=== PATIENT | female | born 1970 | race Caucasian/White ===

== ENCOUNTER → 2020-09-12 | Outpatient (CLI) | LOC: EDSEX → M LABSMTC 08:51 | PROVIDERS: ATTEND Anesthesiology | DX: Z01.812 Encounter for preprocedural laboratory examination (principal); Z20.822 Contact with and (suspected) exposure to COVID-19 ==

== ENCOUNTER 2020-09-17 07:21 | Day surgery (SDC) | payer BC ==
[~2020-09-17] VITALS: Ht 160 cm; Wt 65.8 kg
[~2020-09-17 07:21] MED LIST: LIDOCAINE 2% 100MG/5ML SDV (FOR ANES.) As Ordered ONE; MIDAZOLAM INJ 2MG/2ML VIAL (J2250 PER 1MG) As Ordered ONE; ceFAZolin SOD 2 GM in IV 1 EA IV ONE; fentaNYL 100 MCG/2 ML INJECTION (J3010) As Ordered ONE; propofoL 200 MG/20 ML VIAL As Ordered ONE
--- OUTSIDE RECORDS SUMMARY | 2020-09-17 07:28 | CCD ---
Author Author [facility] [employer] Organization [facility] [employer] Address Unknown Phone Unavailable Care Team Providers Care Equipment Scheduler Name Role Phone Sharath Stein Unavailable PROBLEMS Type Condition ICD9-CM Code VDD76-CC Code Onset Dates Condition S tatus SNOMED Code Notes Problem Renal calculus N20.0 Active 09487984 ALLERGIES Allergen (clinical drug ingredient) Drug/Non Drug Allergy do cumented on EMR Reaction Allergy Type Onset Date Status Sulfa (for allergy use only) Unknown Drug Allergy Active ENCOUNTERS from 1970 to 2020-08-16 Encounter Location Date Provider Diagnosis [facility] Urology [address] [place] [address] Jul Sharath Stein Renal calculus N20.0 IMMUNIZATIONS No Information SOCIAL HISTORY Tobacco Use: Social History Observation Description Date Details (start date - stop date) Former Smoker Sex Assigned At : Social History Observation Description Sex Assigned At Unknown Language: Question Answer Notes Languages spoken: Malay Druze: Question Answer Notes Druze No shinto beliefs that would impact health care. Alcohol Screening: Question Answer Notes Did you have a drink containing alcohol in the past year? Ye s Points 1 Interpretation Negative How many drinks did you have on a typica l day when you were drinking in the past year? 1 or 2 (0 points) How often did you have a drink containing alcohol in t he past year? Monthly or less (1 point) Tobacco Use: Question Answer Notes Are you a: former smoker REASON FOR REFERRAL No Information VITAL SIGNS No information MEDICATIONS Medication SIG (Take, Route, Frequency, Duration) Notes Start Da te End Date Status Acetaminophen-Codeine #3 300-30 MG 1 tablet as needed Orally every 6 hrs Not-Taking Multivitamin - 1 tablet Orally Once a day for 30 day(s) Not-Taking PROCEDURES No Information RESULTS No Results REASON FOR VISIT POST OP KUB MEDICAL (GENERAL) HISTORY Type Description Date Medical History kidney stones Surgical History laparoscopy, appendectomy Surgical History litho x 2 Surgical History c sections x 3 Surgical History hysterectomy Surgical History ganglion cysts removed x 2 Surgical History stent placement Goals Section No Information Health Concerns No Information MEDICAL EQUIPMENT No Information MENTAL STATUS No Information FUNCTIONAL STATUS No Information ASSESSMENTS Encounter Date Diagnosis Assessment Notes Treatment Notes Treatm ent Clinical Notes Jul, Renal calculus (ICD-10 - N20.0) PLAN OF TREATMENT Treatment Notes Test Name Order Date ADM ABDOMEN 1 VIEW (KUB) 2020-08-16 Next Appt Details Provider Name:Twin Decker, 2020-10-12 11:30:00 AM, [address], [place], [address], Insurance Providers Payer Name Payer Address Payer Phone Insured Name Patient Relati onship to Insured Coverage Start Date Coverage End Date [employer] [id number] BONIFACIO JOSHI 171 [id number] Nikita Miguel
--- OUTSIDE RECORDS SUMMARY | 2020-09-17 07:28 | CCD ---
Author Author [facility] Organization [facility] Address Unknown Phone Unavailable Care Team Providers Care Appliance Servicer Name Role Phone Sharath Stein Unavailable PROBLEMS Type Condition ICD9-CM Code [id number] Code Onset Dates Condition S tatus SNOMED Code Notes Problem Renal calculus N20.0 Active 78172195 ALLERGIES Allergen (clinical drug ingredient) Drug/Non Drug Allergy do cumented on EMR Reaction Allergy Type Onset Date Status Sulfa (for allergy use only) Unknown Drug Allergy Active ENCOUNTERS from 1970 to 2020-08-16 Encounter Location Date Provider Diagnosis [facility] Urology [address] [place] [address] Jul Sharath Stein Renal calculus N20.0 IMMUNIZATIONS No Information SOCIAL HISTORY Tobacco Use: Social History Observation Description Date Details (start date - stop date) Former Smoker Sex Assigned At : Social History Observation Description Sex Assigned At Unknown Language: Question Answer Notes Languages spoken: Romanian Yazidism: Question Answer Notes Yazidism No jewish beliefs that would impact health care. Alcohol [...] REASON FOR REFERRAL No Information VITAL SIGNS Weight 148.4 lbs Jul, Height 63 in Jul, BMI 26.29 kg/m2 Jul, Heart Rate 107 /min Jul, Respiratory Rate 18 /min Jul, Oximetry 98 Jul, Blood pressure systolic 136 mm Hg Jul, Blood pressure diastolic 68 mm Hg Jul, MEDICATIONS Medication SIG (Take, Route, Frequency, Duration) Notes Start Da te End Date Status Acetaminophen-Codeine #3 300-30 MG 1 tablet as needed Orally every 6 hrs Not-Taking Multivitamin - 1 tablet Orally Once a day for 30 day(s) Not-Taking PROCEDURES No Information RESULTS No Results REASON FOR VISIT ER FU MEDICAL (GENERAL) HISTORY Type Description Date Medical [...] Notes Jul, Renal calculus (ICD-10 - N20.0) Patient will be scheduled for ESWL of a right renal 8 mm calculus PLAN OF TREATMENT Treatment Notes Assessment Notes Clinical Notes Renal calculus Patient will be sche duled for ESWL of a right renal 8 mm calculus Treatment Notes Test Name Order Date CBC - Complete Blood Count 2020-08-16 URINE CULTURE 2020-08-16 Basic Metabolic Profile (BMP) 2020-08-16 ADM CHEST 2 VIEW 2020-08-16 Electrocardiogram (EKG) 2020-08-16 Future Test Test Name Order Date ADM ABDOMEN 1 VIEW (KUB) [id number] Next Appt Details 2 weeks after ESWL with KUB Reason:follo w-up after ESWL right renal calculus Provider Name:Twin Decker, 2020-10-12 11:30:00 AM, [address], [place], [address], Follow Up:2 weeks after ESWL with KUBfollow-up after ESWL right renal calculus Insurance Providers Payer Name Payer Address Payer Phone Insured Name Patient Relati onship to Insured Coverage Start Date Coverage End Date [facility] [id number] BONIFACIO JOSHI [phone] Nikita Miguel
--- OUTSIDE RECORDS SUMMARY | 2020-09-17 07:28 | CCD ---
Author Author [facility] Organization [facility] Address Unknown Phone Unavailable Care Team Providers Care Director Of Estate Name Role Phone Ria Haywood INDUSTRIAL REAL ESTATE AGENT Unavailable Ria Haywood INDUSTRIAL REAL ESTATE AGENT Unavailable Ria Haywood INDUSTRIAL REAL ESTATE AGENT Unavailable Ria Haywood INDUSTRIAL REAL ESTATE AGENT Unavailable Ria Haywood INDUSTRIAL REAL ESTATE AGENT Unavailable Ria Haywood INDUSTRIAL REAL ESTATE AGENT Unavailable Ria Haywood INDUSTRIAL REAL ESTATE AGENT Unavailable Ria Haywood INDUSTRIAL REAL ESTATE AGENT Unavailable Hal WILLIAMSON MD Unavailable Unavailable Hal WILLIAMSON MD Unavailable Unavailable Hal WILLIAMSON MD Unavailable Unavailable Hal WILLIAMSON MD Unavailable Unavailable Hal WILLIAMSON MD Unavailable Unavailable Hal WILLIAMSON MD Unavailable Unavailable Hal WILLIAMSON MD Unavailable Unavailable Hal WILLIAMSON MD Unavailable Unavailable Hal WILLIAMSON MD Unavailable Unavailable Hal WILLIAMSON MD Unavailable Unavailable Hal WILLIAMSON MD Unavailable Unavailable Hal WILLIAMSON MD Unavailable Unavailable HAASBEEK, F RUBÉN MD Unavailable Unavailable HAASBEEK, Hal MONTANA MD Unavailable Unavailable HAASBEEK, Hal MONTANA MD Unavailable Unavailable HAASBEEK, Hal MONTANA MD Unavailable Unavailable HAASBEEK, Hal MONTANA MD Unavailable Unavailable HAASBEEK, Hal MONTANA MD Unavailable Unavailable HAASBEEK, Hal MONTANA MD Unavailable Unavailable HAASBEEK, Hal MONTANA MD Unavailable Unavailable HAASBEEK, F RUBÉN MD Unavailable Unavailable HAASBEEK, F RUBÉN MD Unavailable Unavailable HAASBEEK, F RUBÉN MD Unavailable Unavailable HAASBEEK, Hal MONTANA MD Unavailable Unavailable HAASBEEK, Hal MONTANA MD Unavailable Unavailable HAASBEEK, Hal MONTANA MD Unavailable Unavailable Gutierrez, E Blanca PA Unavailable [phone] Gutierrez, E Blanca PA Unavailable [phone] Gutierrez, E Blanca PA Unavailable [phone] Gutierrez, E Blanca PA Unavailable [phone] Gutierrez, E Blanca PA Unavailable [phone] Re-disclosure Warning The records that you are about to access may contain information from federally-assisted alcohol or drug abuse programs. If such information is present, then the following federally mandated warning applies: This information has been disclosed to you from records protected by federal confidentiality rules (42 CFR part 2). The federal rules prohibit you from making any further disclosure of this information unless further disclosure is expressly permitted by the written consent of the person to whom it pertains or as otherwise permitted by 42 CFR part 2. A general authorization for the release of medical or other information is NOT sufficient for this purpose. The Federal rules restrict any use of the information to criminally investigate or prosecute any alcohol or drug abuse patient.The records that you are about to access may contain highly sensitive health information, the redisclosure of which is protected by Article 27-F of the [facility] Public Health law. If you continue you may have access to information: Regarding HIV / AIDS; Provided by facilities licensed or operated by the [facility] Office of Mental Health; or Provided by the [facility] Office for People With Developmental Disabilities. If such information is present, then the following [facility] mandated warning applies: This information has been disclosed to you from confidential records which are protected by state law. State law prohibits you from making any further disclosure of this information without the specific written consent of the person to whom it pertains, or as otherwise permitted by law. Any unauthorized further disclosure in violation of state law may result in a fine or fpc sentence or both. A general authorization for the release of medical or other information is NOT sufficient authorization for further disc losure. Allergies and Adverse Reactions Type Description Substance Reaction Status Data Source(s ) Drug allergy Drug allergy Sulfa (Sulfonamide Antibiotics) Anaphylactic Shock Other [facility] Encounters Encounter Providers Location Date Indications Data Source(s ) Unknown [address] [facility] [address] 08/13/2020 12:00:00 AM EST eCW1 ([facility]) Outpatient [address] [facility] [address] 08/11/2020 12:00:00 AM EST eCW1 ([facility]) Preadmit Attender: Blanca HERNÁNDEZCAORT-PRSCAOT 12:00:00 AM EST S/P R VOLAR GANGLION CYST EXCISION [facility] ital S/P R VOLAR GANGLION CYST EXCISION Outpatient Attender: Blanca JOSHI CPSCAORT-CPSCAORT 1 08/12/2019 10:28:00 AM EST - 06/12/2020 10:29:00 AM EST [facility] Patient discharged. Outpatient Attender: RUBÉN WILLIAMSON MD CPSCAORT-SDCLOC 11:08:00 AM EST - 05/29/2020 02:01:00 PM EST RIGHT WRIST VOLAR CYST [facility] RIGHT WRIST VOLAR CYST Outpatient Attender: RUBÉN WILLIAMSON MD CPSCAORT-LABPNP 10:15:00 AM EST PRE-OP [facility] PRE-OP Outpatient Attender: RUBÉN WILLIAMSON MD ED-LABPNP 05/24/2020 08:00:00 AM EST PREOP [facility] PREOP Outpatient Attender: Blanca JOSHI CPSCAORT-CPSCAORT 1 08:45:00 AM EDT - 05/13/2020 08:46:00 AM EDT [facility] Patient discharged. Outpatient Attender: Elena Haywood INDUSTRIAL REAL ESTATE AGENT CPSCAORT-CPSCAORT 0 09/05/2019 10:31:00 AM EST - 09/05/2019 10:32:00 AM EST [facility] Patient discharged. Medications Medication Brand Name Start Date Product Form Dose Route Admi nistrative Instructions Pharmacy Instructions Status Indications Reaction Description Data Source(s) 300-30 mg 05/29/2020 12:00:00 AM EST tablet 15 TAKE ONE TABLET BY MOUTH EVERY 4 HOURS NEEDED FOR PAIN MAXIMUM DAILY DOSE = 6 TAKE ONE TABLET BY MOUTH EVERY 4 HOURS NEEDED FOR PAIN MAXIMUM DAILY DOSE = 6 SOLD: 05/29/2020 [facility] 875 mg 07/29/2019 12:00:00 AM EST tablet 20 TAKE 1 TABLET BY MOUTH TWICE DAILY TAKE 1 TABLET BY MOUTH TWICE DAILY SOLD: 07/29/2019 [facility] Insurance Providers Payer name Policy type / Coverage type Policy ID Covered republican ID Covered republican's relationship to [place] Policy [place] Plan Information [place] P[place] 302/307 [id number] SP [id number] BC [employer]OSS 361 [id number] SP [id number] BC [employer]OSS 361 [id number] [id number] BCBS 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 [id number] BCBS EXC [id number] full time paramedic employed [id number] [place]LL[place] [id number] Full [place] e employed [id number] [place]CELLUS [place] [id number] SPOUSE [id number] EXCELLUS BLUE CROSS [id number] HU [id number] EXCELLUS BLUE CROSS [id number] HU [id number] EXCELLUS BLUE CROSS [id number] HU [id number] EXCELLUS BLUE CROSS [id number] HU [id number] BLUE CROSS -O/P [id number] 01 [id number] BLUE CROSS - CLINIC [id number] 01 [id number] BLUE CROSS -O/P [id number] 01 [id number] BCBS HMO [place] O [id number] U [id number] Problems, Conditions, and Diagnoses Code Display Name Description Problem Type Effective Dates Data Source(s) N20.0 Renal calculus Renal calculus Problem 08/11/2020 12:00: 00 AM EST eCW1 ([facility]) M67.431 Ganglion, right wrist GANGLION, RIGHT WRIST Diagnosis 05/29/2020 11:08:00 AM [facility] Surgeries/Procedures Procedure Description Date Indications Data Source(s) EXCISION GANGLION WRIST DORSAL/VOLAR RECURRENT 020 12:00:00 AM [facility] LEVEL III SURG PATHOLOGY GROSS&MICROSCOPIC EXAM TISSUE EXAM BY PATHOLOGIST 05/29/2020 12:00:00 AM [facility] Injection, propofol, 10 mg 05/29/2020 12:00:00 AM [facility] Injection, fentanyl citrate, 0.1 mg 05/29/2020 12:00:0 0 AM [facility] Excision of Right Lower Arm and Wrist Tendon, Open Donald gibbs EXCISION OF RIGHT LOWER ARM AND WRIST TENDON, OPEN APPROACH 05/29/2020 12:00:00 AM [facility] outpatient clinic visit for assessment and ma roddy of a patient Hospital Outpatient Clinic Visit 05/13/2020 12:00:00 AM EDT [facility] RADEX WRIST COMPLETE MINIMUM 3 VIEWS X-RAY EXAM OF WRIST 12:00:00 AM [facility] Results ID Date Data Source [id number] 09/12/2020 09:00:00 AM EST [facility] Name Value Range Interpretation Code Description Data Kimberly rce(s) Supporting Document(s) SARS coronavirus 2 RNA Not Detected [facility] [place] This lab was ordered by [facility] and reported by [facility]. ID Date Data Source [id number] 08/03/2020 01:02:00 PM EST [facility] Name Value Range Interpretation Code Description Data Kimberly rce(s) Supporting Document(s) SARS coronavirus 2 RNA [Presence] in Res piratory specimen by SIMONE with probe detection NEGATIVE [facility] This lab was ordered by [facility] a nd reported by [facility]. ID Date Data Source [id number] 07/09/2020 04:06:00 PM [facility] Name Value Range Interpretation Code Description Data Kimberly rce(s) Supporting Document(s) ID Date Data Source [id number] 06/02/2020 02:59:00 PM EST [facility] COVID-19 Patient Ethnicity Not or LatinoCOVID-19 Patient Race WhiteCOVID-19 Specimen Source Nasopharyngeal Name Value Range Interpretation Code Description Data Kimberly rce(s) Supporting Document(s) SARS-CoV-2 Specimen Source Normal (applies to n on-numeric results) [facility] SARS-CoV-2 RNA Normal (applies to non-numeric r esults) [facility] Patient Race Normal (applies to non-numeric result s) [facility] Not or LatinoSee scanned report ID Date Data Source [id number] 09/05/2019 01:40:00 PM [facility] ZEE FAR[facility]LL : 1970 Age/S ex: 49F Ordering Provider: ELFEGO Gabriel Med Rec #: [id number] Reg Status: REG POV Room #: Date of Service: 09/05/19 Report Number: [id number] cc:ELFEGO Gabriel Send Report To: [id number] XRP/XR Wrist Rt Min. 3 Views Reason for exam: GANGLION CYST FINDINGS: Normal alignment and position of the bones. No signs of any osseous lesions identified. No other significant findings. IMPRESSION: No abnormalities identified. Fluoroscopy time in seconds: Number of Exposures: Time Portable Image Performed: Contrast Agent in ml: Method of Administration: REPORT SIGNATURE ON FILE Reported By: Mart Christian MD <Electronically signed by Garry Christian MD> 09/05/19 1517 Dictation Date/Time: 09/05/19 1120 Transcribed Date/Time: 09/05/19 1340 Recruitment Specialist: ANDREW Name Value Range Interpretation Code Description Data Kimberly rce(s) Supporting Document(s) Procedure Social History Code Duration Value Status Description Data Source(s ) Smoking 08/11/2020 12:00:00 AM EST Former Smoker completed Former Smoker eCW1 ([facility]) Smoking 08/11/2020 12:00:00 AM EST Former Smoker completed Former Smoker eCW1 ([facility]) Vital Signs ID Date Data Source UNK Name Value Range Interpretation Code Description Data Source(s) Diastolic blood pressure 68 mm[Hg] 68 mm[Hg] eCW1 ([facility]) Systolic blood pressure 136 mm[Hg] 136 mm[Hg] e CW1 ([facility]) Respiratory rate 18 /min 18 /min eCW1 ([facility]) Heart rate 107 /min 107 /min eCW1 ([facility]) Body mass index (BMI) [Ratio] 26.29 kg/m2 26.29 kg/m2 eCW1 ([facility]) Body height 63 [in_i] 63 [in_i] eCW1 ([facility]) Body weight 148.4 [lb_av] 148.4 [lb_av] eCW1 ([facility]) ID Date Data Source [id number] 07/10/2020 07:27:00 AM EST [facility] Name Value Range Interpretation Code Description Data Source(s) Weight Measurement Method 1 1 [facility] Weight 2320 2320 [facility] Temperature 97.3 97.3 [facility] Respiratory Effort 1 1 [facility] Respiratory Rate 16 16 [facility] Pulse Rate 88 88 [facility] Height 63 63 [facility] Blood Pressure 114/76 114/76 [facility]
--- NOTE | 2020-09-17 08:43 | REP ---
INDICATION: KIDNEY STONE- KUB PRIOR TO SDC. COMPARISON: None. TECHNIQUE: KUB: Single view. FINDINGS: Bowel gas pattern is normal. There is a double pigtail ureteral stent in place on the right. There is ar 7 mm calcific opacity adjacent to the distal end of the stent which could conceivably be in the distal ureter. There are bilateral pelvic phleboliths. There is a 5 mm calcification projecting over the mid pole region of the left kidney consistent with intrarenal nephrolithiasis. Psoas margins and flank stripes are intact. No mass or organomegaly is seen. IMPRESSION: Double-pigtail stent in place on the right. Possible distal ureteral stone on the right. 5 mm calculus projects in the left mid kidney. <Electronically signed by Adonis Krause > 09/17/20 0040
[2020-09-17] MEDS ORDERED: FLOM0.4C39 PO (09:23)
[2020-09-17] MEDS ORDERED: OXYC1TAB23 PO (09:23)
[2020-09-17] MEDS ORDERED: PHENYLephrine 500MCG 5ML (100MCG/ML) SYRINGE As Ordered ONE ×2 (09:31→09:52)
[2020-09-17] MEDS ORDERED: ePHEDrine SULFATE 25 MG/5 ML(5MG/ML) SYRINGE As Ordered ONE (09:38)
[2020-09-17] MEDS ORDERED: METOCLOPRAMIDE INJ 10MG/2ML VIAL (J2765 PER 1) IV PRN (10:15)
[2020-09-17] MEDS ORDERED: ONDANSETRON 4MG/2ML VIAL IV PRN (10:15)
[2020-09-17] MEDS ORDERED: LR 1,000 ML IV SCH (10:15)
[2020-09-17] MEDS ORDERED: PERCOCET 5MG/325MG TAB PO PRN ×2 (10:15→11:15)
[2020-09-17 10:45] VITALS: BP 112/68
--- NOTE | 2020-09-17 12:45 | RO ---
OPERATIVE NOTE DATE OF OPERATION: 09/17/2020 PREOPERATIVE DIAGNOSIS: Right ureteral stone. POSTOPERATIVE DIAGNOSIS: Right ureteral stone. PROCEDURE: Right extracorporal shock wave lithotripsy. SURGEON: Jeffrey Betancur MD. GATE CUTTER: None. ANESTHESIA: MAC. INDICATIONS FOR PROCEDURE: This is a 50-year-old female who had an approximately 1 cm right ureterovesical junction stone. She had a ureteral stent placed a few weeks ago. She is brought to the operating room today for treatment of the stone. DESCRIPTION OF PROCEDURE: The patient was brought to the operating room and MAC anesthesia was administered. Prophylactic antibiotics were infused. She was placed in the supine position in preparation for a right-sided extracorporal shock wave lithotripsy. Fluoroscopy was utilized to monitor stone position and fragmentation throughout the procedure. Shock waves were then delivered to the right-sided ureteral stone ungated. There were no arrhythmias. After 3000 shocks, the procedure was concluded. The patient was then awakened from anesthesia and then transported to the recovery room in stable condition. ESTIMATED BLOOD LOSS: 5 mL. COMPLICATIONS: None. SPECIMENS: None. PLAN: The patient will follow-up in the urology clinic in a few weeks for stent removal with imaging prior.
== END 2020-09-17 11:50 | disposition home or self-care (01) ==
LOC: M SDC 07:21
PROVIDERS: ATTEND Urology
DX: N20.1 Calculus of ureter (principal); Z88.2 Allergy status to sulfonamides; Z87.891 Personal history of nicotine dependence
CPT/HCPCS: 50590; 74018; J0690; J2250; J2370; J3010

== ENCOUNTER → 2020-10-12 | Outpatient (CLI) | payer BC ==
[~2020-10-12] MED LIST changes: +ACET1TAB16 PO; +FLOM0.4C39 PO; -LIDOCAINE 2% 100MG/5ML SDV (FOR ANES.) As Ordered ONE; -MIDAZOLAM INJ 2MG/2ML VIAL (J2250 PER 1MG) As Ordered ONE; +OXYC1TAB23 PO; +THERTAB52 PO; -ceFAZolin SOD 2 GM in IV 1 EA IV ONE; -fentaNYL 100 MCG/2 ML INJECTION (J3010) As Ordered ONE; -propofoL 200 MG/20 ML VIAL As Ordered ONE
--- NOTE | 2020-10-12 13:56 | REPPI ---
INDICATION: N20.0 RENAL CALCULUS. COMPARISON: Comparison KUB September 09, 2020.. TECHNIQUE: KUB: Two views provided. FINDINGS: Two supine views of the abdomen demonstrated double-pigtail ureteral stent in place on the right. Bowel gas pattern is unremarkable. Psoas margins are symmetric. There are multiple bilateral pelvic phleboliths. There is a calcification adjacent to the distal pigtail loop of the right ureteral stent which could be in the ureter or bladder. Is partially obscured by the stent itself. I note that a stone was observed in this location on August 03, 2020 CT study. IMPRESSION: Double pigtail right ureteral stent in place. Possible distal UVJ stone adjacent to the stent. <Electronically signed by Adonis Krause > 10/12/20 8449
== END ==
LOC: M PLAIMG 10:35
PROVIDERS: ATTEND Urology
DX: N20.0 Calculus of kidney (principal)

== ENCOUNTER → 2021-04-19 | Outpatient (CLI) | payer BC ==
--- NOTE | 2021-04-19 10:24 | REP ---
INDICATION: CALCULUS OF KIDNEY. COMPARISON: 10/12/2020 FINDINGS: KUB shows the intestinal gas pattern to be nonspecific. The organ silhouettes insofar as delineated are unremarkable. There is no evidence of free intraperitoneal air. There is a single calcifications superimposed over the left nephric silhouette which appears unchanged. The right-sided double pigtail stent has been removed. There are unchanged appearing pelvic phleboliths. A calcification seen previously adjacent to the distal end of the pigtail catheter is no longer present. IMPRESSION: As above <Electronically signed by Noel Millard > 04/19/21 1022
== END ==
LOC: M PLAIMG 09:52
PROVIDERS: ATTEND Urology
DX: N20.0 Calculus of kidney (principal)

== ENCOUNTER → 2021-07-19 | Outpatient (CLI) | payer BC | LOC: M PLAIMG 10:23 | PROVIDERS: ATTEND Nurse Practitioner Women's Health | DX: N20.0 Calculus of kidney (principal) ==

== ENCOUNTER → 2021-09-09 | Outpatient (REF) | payer BC ==
[2021-09-09 15:02] LABS: HEPATITIS B CORE ANTIBODY IGM NEGATIVE (NEGATIVE); HEPATITIS B SURFACE ANTIGEN NEGATIVE (NEGATIVE)
[2021-09-09 15:17] LABS: TOTAL PROTEIN 4.8 GM/DL (6.4-8.2)
[2021-09-10 14:03] LABS: ALBUMIN % 53.3 % (55.8-66.1); ALPHA-1-GLOBULIN % 4.1 % (2.9-4.9); ALPHA-2-GLOBULINS % 24.5 % (7.1-11.8); BETA-1-GLOBULINS % 4.9 % (4.7-7.2); BETA-2-GLOBULINS % 8.2 % (3.2-6.5)
[2021-09-10 14:04] LABS: ALBUMIN 2.56 GM/DL (3.29-5.55); ALPHA-2-GLOBULINS 1.18 GM/DL (0.42-0.99); BETA-1-GLOBULINS 0.24 GM/DL (0.28-0.60); BETA-2-GLOBULINS 0.39 GM/DL (0.19-0.55); GAMMA GLOBULINS 0.24 GM/DL (0.65-1.58)
== END ==
LOC: M LAB REF 12:49
PROVIDERS: ATTEND Internal Medicine Nephrology
DX: N04.8 Nephrotic syndrome with other morphologic changes (principal)

== ENCOUNTER → 2021-09-21 | Outpatient (POV) | payer BC ==
[~2021-09-21] VITALS: Ht 160 cm; Wt 75.0 kg
[~2021-09-21] MED LIST changes: +LISI5TAB11 PO; +TORS20TA2 PO
[2021-09-21 10:00] VITALS: BP 124/92
== END ==
LOC: M IRPOV 09:44
PROVIDERS: ATTEND Radiology Diagnostic Radiology
DX: R80.9 Proteinuria, unspecified (principal); N04.9 Nephrotic syndrome with unspecified morphologic changes; R22.43 Localized swelling, mass and lump, lower limb, bilateral; Z87.442 Personal history of urinary calculi; Z87.891 Personal history of nicotine dependence; Z88.2 Allergy status to sulfonamides; Z79.899 Other long term (current) drug therapy

== ENCOUNTER → 2021-09-27 | Outpatient (CLI) | payer BC ==
[~2021-09-27] MED LIST changes: +LIDOCAINE 1% MDV 20ML VIAL As Ordered ONE; +MIDAZOLAM INJ 2MG/2ML VIAL (J2250 PER 1MG) As Ordered ONE; +NS 1,000 ML IV SCH; +PROMETHAZINE INJ 25 MG/ML VIAL (J2550) As Ordered ONE; +diphenhydrAMINE 50MG/ML VIAL (J1200) As Ordered ONE; +fentaNYL 100 MCG/2 ML INJECTION As Ordered ONE
[2021-09-27 10:48] VITALS: BP 101/59
== END ==
LOC: M IRPRO 07:12
PROVIDERS: ATTEND Radiology Diagnostic Radiology
DX: N04.9 Nephrotic syndrome with unspecified morphologic changes (principal); Z88.2 Allergy status to sulfonamides; Z79.899 Other long term (current) drug therapy
CPT/HCPCS: 50200; 77012; 88300; 99152; J1200; J2250; J3010

== ENCOUNTER → 2021-10-07 | Outpatient (REF) | payer BC ==
[~2021-10-07] MED LIST changes: -LIDOCAINE 1% MDV 20ML VIAL As Ordered ONE; -MIDAZOLAM INJ 2MG/2ML VIAL (J2250 PER 1MG) As Ordered ONE; -NS 1,000 ML IV SCH; -PROMETHAZINE INJ 25 MG/ML VIAL (J2550) As Ordered ONE; -diphenhydrAMINE 50MG/ML VIAL (J1200) As Ordered ONE; -fentaNYL 100 MCG/2 ML INJECTION As Ordered ONE
[2021-10-07 18:24] LABS: CREATININE,RANDOM URINE < 13.0 MG/DL; TOTAL PROTEIN,RANDOM URINE 25.2 MG/DL (0.0-12.0)
== END ==
LOC: M LAB REF 16:49
PROVIDERS: ATTEND Internal Medicine Nephrology
DX: N04.0 Nephrotic syndrome with minor glomerular abnormality (principal); N04.8 Nephrotic syndrome with other morphologic changes

== ENCOUNTER → 2021-10-14 | Outpatient (REF) | payer BC ==
[2021-10-14 18:08] LABS: CREATININE,RANDOM URINE < 13.0 MG/DL; TOTAL PROTEIN,RANDOM URINE 13.6 MG/DL (0.0-12.0)
== END ==
LOC: M LAB REF 16:43
PROVIDERS: ATTEND Internal Medicine Nephrology
DX: N04.0 Nephrotic syndrome with minor glomerular abnormality (principal); N04.8 Nephrotic syndrome with other morphologic changes

== ENCOUNTER → 2021-10-21 | Outpatient (REF) | payer BC ==
[2021-10-21 18:05] LABS: CREATININE,RANDOM URINE < 13.0 MG/DL; TOTAL PROTEIN,RANDOM URINE 9.6 MG/DL (0.0-12.0)
== END ==
LOC: M LAB REF 16:50
PROVIDERS: ATTEND Internal Medicine Nephrology
DX: N04.8 Nephrotic syndrome with other morphologic changes (principal); N04.0 Nephrotic syndrome with minor glomerular abnormality

== ENCOUNTER → 2022-03-23 | Outpatient (REF) | payer BC ==
[~2022-03-23] MED LIST changes: -ACET1TAB16 PO; +ACET300T48 PO
[2022-03-23 18:24] LABS: TOTAL PROTEIN,RANDOM URINE 186.2 MG/DL (0.0-12.0)
== END ==
LOC: M LAB REF 17:04
PROVIDERS: ATTEND Internal Medicine Nephrology
DX: N04.8 Nephrotic syndrome with other morphologic changes (principal)

== ENCOUNTER → 2022-07-20 | Outpatient (CLI) | payer BC | LOC: M PLAIMG 09:17 | PROVIDERS: ATTEND Nurse Practitioner Women's Health | DX: N20.0 Calculus of kidney (principal) ==

== ENCOUNTER → 2022-08-12 | Outpatient (REF) | payer BC ==
[2022-08-12 19:11] LABS: CREATININE, URINE 13.3 MG/DL
[2022-08-12 19:12] LABS: MALB URINE SIEMENS < 3.0 MG/DL; MAU/CREAT RATIO 22.5 MCG/MG (0.0-30.0)
== END ==
LOC: M LAB REF 16:51
PROVIDERS: ATTEND Internal Medicine Nephrology
DX: N04.8 Nephrotic syndrome with other morphologic changes (principal)

== ENCOUNTER → 2023-07-21 | Outpatient (CLI) | payer BC | LOC: M PLAIMG 10:06 | PROVIDERS: ATTEND Nurse Practitioner Family | DX: N20.0 Calculus of kidney (principal) ==

== ENCOUNTER → 2024-07-23 | Outpatient (CLI) | payer MEDICAID, OTHER | LOC: M PLAIMG 09:34 | PROVIDERS: ATTEND Physician Assistant | DX: N20.0 Calculus of kidney (principal) ==

== ENCOUNTER → 2025-07-23 | Outpatient (CLI) | payer MEDICAID, OTHER ==
[~2025-07-23] MED LIST changes: -FLOM0.4C39 PO; +TAMS-18 PO
== END ==
LOC: M PLAIMG 08:19 → M PLALAB 08:19
PROVIDERS: ATTEND Physician Assistant
DX: N20.0 Calculus of kidney (principal)